=== PATIENT | female | born 1955 | race Caucasian/White ===

== ENCOUNTER 2016-07-19 15:13 | Inpatient (IN) | payer OTHER ==
[~2016-07-19] VITALS: Ht 170.2 cm; Wt 51.0 kg
[2016-07-19] MEDS ORDERED: CEFTRIAXONE SOD INJ 1 GM ADDVIAL IV STA (15:39)
[2016-07-19] MEDS ORDERED: VANCOMYCIN INJ 1,250 MG in SODIUM CHLORIDE 0.9% 250ML 250 ML IV STA (15:39)
[2016-07-19] MEDS ORDERED: KETOROLAC TROMETHAMINE 30 MG/ML VIAL IV STA (15:56)
[2016-07-19] MEDS ORDERED: SERT100T PO (15:59)
[2016-07-19] MEDS ORDERED: ALBUAER INH (15:59)
[2016-07-19 17:03] LABS: BASO % 0.5 %; BASO ABS # 0.04 K/uL (0-0.2); COMPLETE YES; EOS % 0.4 %; HEMATOCRIT 47.5 % (37-47); IG% 0.2 %; LYMPH % 18.3 %; MEAN CELL VOLUME 94.8 fL (80-100); MEAN CORPUSCULAR HEMOGLOBIN 33.7 pg (25-34); MEAN CORPUSCULAR HGB CONC 35.6 g/dl (32-36); MEAN PLATELET VOLUME 11.1 fL (7.4-10.4); MONO % 10.5 %; NEUT % 70.1 %; PLATELET COUNT 226 K/uL (130-400); RED BLOOD COUNT 5.01 M/uL (4.2-5.4); WHITE BLOOD COUNT 8.19 K/uL (4.8-10.8)
[2016-07-19 17:14] LABS: PARTIAL THROMBOPLASTIN RATIO 1.2; PROTHROMBIN TIME (PATIENT) 10.7 SECONDS (9.0-12.0)
[2016-07-19 17:20] LABS: CREATININE 0.76 mg/dl (0.60-1.20)
[2016-07-19 17:20] LABS: URINE APPEARANCE CLEAR (CLEAR); URINE BILIRUBIN NEG (NEG); URINE COLOR DK YELLOW; URINE EPITHELIAL CELL AUTO >30 /lpf (0-5); URINE NITRITE POS (NEG); URINE PH 5.5 (4.5-7.5); URINE SPECIFIC GRAVITY 1.024 (1.000-1.030); UROBILINOGEN NEG (NEG); ZZUR CULT IF INDIC CLEAN CATCH NO
[2016-07-19 17:21] LABS: BUN/CREATININE RATIO 16.5 (10-20); CALCIUM 9.7 mg/dl (8.5-10.1)
[2016-07-19 17:22] LABS: MANUAL MICROSCOPIC REQUIRED? NO; REVIEW REQ? NO
[2016-07-19 17:23] LABS: ALB/GLOB RATIO 0.7 (0.9-2)
[2016-07-19] MEDS ORDERED: SODIUM CHLORIDE 0.9% 1000ML 1,000 ML IV STA (18:29)
[2016-07-19] MEDS ORDERED: MoRPHine SULFATE 4 MG/ML 1 ML CARP\\VIAL IV STA ×2 (18:29→20:21)
[2016-07-19] MEDS ORDERED: ONDANSETRON INJ 2 MG/ML 2 ML VIAL IV STA (18:29)
--- NOTE | 2016-07-19 18:48 | DIAGNOSTIC IMAGING REPORT ---
CHEST ONE VIEW PORTABLE CLINICAL HISTORY: Right anterior chest erythema, nausea, febrile dyspnea COMPARISON STUDY: No previous studies for comparison. FINDINGS: The bones soft tissues and hemidiaphragms are normal. The cardiomediastinal silhouette is normal. The lungs are clear. The pulmonary vasculature is normal. IMPRESSION: Negative chest. Electronically signed by: Trery Meza M.D. 07/19/2016 6:47 PM Dictated Date/Time: 07/19/2016 6:46 PM
--- NOTE | 2016-07-19 18:57 | EMERGENCY ROOM VISIT NOTE ---
History First contact with patient: 15:31 Chief Complaint: INFECTION Stated Complaint: CELLULITIS, NAUSEA, FEVER Nursing Triage Summary: see triage note History of Present Illness The patient is a 61 year old female who presents to the Emergency Room via private vehicle with complaints of "cellulitis, nausea, fever". The patient states that 2 days ago, she woke up with pain over the right anterior chest superficially. She notes that the skin was very painful. She states that it felt warm to touch. It has been rapidly progressing to include erythema of which now has spread from the right anterior chest up towards the right neck. She notes pain into the right neck. She rates the discomfort as an 8/10. There is associated nausea. She has a history of C. difficile. She denies any history of MRSA, diabetes, immunocompromising condition, chest pain, shortness of breath, abdominal pain. Review of Systems A complete 10-point Review of Systems was discussed with the patient, with pertinent positives and negatives listed in the History of Present Illness. All remaining Review of Systems questions can be considered negative unless otherwise specified. Past Medical/Surgical History Medical Problems: (1) Cellulitis of chest wall Bronchitis, stomach problems, cholecystectomy, ankle surgery, hysterectomy, appendectomy, hernia surgery, C diff. Family History Diabetes, high blood pressure, cancer, gallbladder disease. Social History Smoking Status: Current Every Day Smoker Social History: Patient lives with her adult children, and grandchildren. She admits to tobacco use and alcohol use. Current/Historical Medications Scheduled Sertraline Hcl (Zoloft), 100 MG PO DAILY Scheduled PRN Albuterol Sulfate (Proventil Hfa), 2 PUFFS INH UD PRN for Cough Allergies Coded Allergies: Penicillins (Unverified Allergy, Severe, ANAPHYLAXIS, 07/19/16) has tolerated ceftrixone and cefoxitin during past admissions Clarithromycin (Unverified Adverse Reaction, Unknown, GI UPSET, 07/19/16) Sulfamethoxazole w/Trimethoprim (Unverified Adverse Reaction, Unknown, GI UPSET, 07/19/16) Uncoded Allergies: SUTURE PROLENE VICRYL ? (Allergy, Unknown, 03/20/02) Physical Exam Vital Signs Date Time Temp Pulse Resp B/P (MAP) Pulse Ox O2 Delivery O2 Flow Rate FiO2 07/19/16 22:28 71 148/78 07/19/16 19:54 75 18 150/84 07/19/16 17:18 88 18 141/87 07/19/16 16:30 100 Room Air 07/19/16 15:22 37.1 107 18 117/82 96 Room Air Physical Exam VITAL SIGNS - Vital signs and nursing notes were reviewed. Patient is afebrile , normotensive, tachycardic at a rate of 107 bpm, and is saturating well on room air 96%. GENERAL -61-year-old female appearing her stated age who is in no acute distress. Communicates well with provider and answers questions appropriately. SKIN - There is a large homogenous erythematous non-raised rash on the skin overlying the right anterior chest, right shoulder and right anterior/lateral neck. This is warm to tough and tender to palpation. HEAD - NC/AT. EYES - Sclera anicteric. Palpebral conjunctiva pink and moist with no injection noted. MOUTH/OROPHARYNX - Without perioral cyanosis. NECK - Neck with FROM. Supple to palpation. No lymphadenopathy noted. No nuchal rigidity. No meningismus. LUNGS - Chest wall symmetric without accessory muscle use, intercostals retractions, or central cyanosis. Normal vesicular breath sounds CTA B/L. No wheezes, rales, or rhonchi appreciated. CARDIAC - RRR with S1/S2. No murmur, rubs, or gallops appreciated. ABDOMEN - Abdominal contour without pulsations or visible masses. BS normoactive all four quadrants. No tenderness, palpable masses, hepatosplenomegaly, or ascites noted. Medical Decision & Procedures ER Provider Diagnostic Interpretation: CHEST ONE VIEW PORTABLE CLINICAL HISTORY: Right anterior chest erythema, nausea, febrile dyspnea COMPARISON STUDY: No previous studies for comparison. FINDINGS: The bones soft tissues and hemidiaphragms are normal. The cardiomediastinal silhouette is normal. The lungs are clear. The pulmonary vasculature is normal. IMPRESSION: Negative chest. Electronically signed by: Trery Meza M.D. 07/19/2016 6:47 PM Dictated Date/Time: 07/19/2016 6:[address] WITHOUT CONTRAST CT DOSE: 339.80 mGy.cm HISTORY: Pain. Infection. R Shoulder/neck cellulitis, consider nec fasc TECHNIQUE: Multiaxial CT images of the chest were performed without contrast. COMPARISON: None. FINDINGS: Lungs are considered generally clear. Minimal left lower lobe posterior atelectatic change. No significant mediastinal or hilar adenopathy. Slight degree of infiltrative changes subcutaneous fat to lesser extent right femoral musculature over the right superior chest wall anteriorly extending into the anterior right shoulder and to a minimal degree lower right cervical neck region. No evidence for drainable abscess or collection. No abnormal soft tissue air. IMPRESSION: 1. Mild generalized cellulitis of the right anterior chest wall extending to a minimal extent to the lower right cervical region. 2. No evidence for abscess or collection. 3. Examination of chest is otherwise negative. 4. The study is specifically negative for soft tissue air Electronically signed by: Terry Meza M.D. 07/19/2016 8:55 PM Dictated Date/Time: 07/19/2016 8:49 PM Laboratory Results 07/19/16 16:40 Red Blood Count 5.01, Mean Corpuscular Volume 94.8, Mean Corpuscular Hemoglobin 33.7, Mean Corpuscular Hemoglobin Concent 35.6, Mean Platelet Volume 11.1, Neutrophils (%) (Auto) 70.1, Lymphocytes (%) (Auto) 18.3, Monocytes (%) (Auto) 10.5, Eosinophils (%) (Auto) 0.4, Basophils (%) (Auto) 0.5, Neutrophils # (Auto ) 5.74, Lymphocytes # (Auto) 1.50, Monocytes # (Auto) 0.86, Eosinophils # (Auto ) 0.03, Basophils # (Auto) 0.04 07/19/16 16:40 Test 07/19/16 16:40 07/19/16 17:00 07/19/16 17:20 White Blood Count 8.19 K/uL (4.8-10.8) Red Blood Count 5.01 M/uL (4.2-5.4) Hemoglobin 16.9 g/dL (12.0-16.0) Hematocrit 47.5 % (37-47) Mean Corpuscular Volume 94.8 fL (80-100) Mean Corpuscular Hemoglobin 33.7 pg (25-34) Mean Corpuscular Hemoglobin Concent 35.6 g/dl (32-36) Platelet Count 226 K/uL (130-400) Mean Platelet Volume 11.1 fL (7.4-10.4) Neutrophils (%) (Auto) 70.1 % Lymphocytes (%) (Auto) 18.3 % Monocytes (%) (Auto) 10.5 % Eosinophils (%) (Auto) 0.4 % Basophils (%) (Auto) 0.5 % Neutrophils # (Auto) 5.74 K/uL (1.4-6.5) Lymphocytes # (Auto) 1.50 K/uL (1.2-3.4) Monocytes # (Auto) 0.86 K/uL (0.11-0.59) Eosinophils # (Auto) 0.03 K/uL (0-0.5) Basophils # (Auto) 0.04 K/uL (0-0.2) RDW Standard Deviation 44.7 fL (36.4-46.3) RDW Coefficient of Variation 13.0 % (11.5-14.5) Immature Granulocyte % (Auto) 0.2 % Immature Granulocyte # (Auto) 0.02 K/uL (0.00-0.02) Prothrombin Time 10.7 SECONDS (9.0-12.0) Prothromb Time International Ratio 1.0 (0.9-1.1) Activated Partial Thromboplast Time 30.8 SECONDS (21.0-31.0) Partial Thromboplastin Ratio 1.2 Anion Gap 7.0 mmol/L (3-11) Est Creatinine Clear Calc Drug Dose 63.7 ml/min Estimated GFR () 99.5 Estimated GFR (Non- 85.9 BUN/Creatinine Ratio 16.5 (10-20) Calcium Level 9.7 mg/dl (8.5-10.1) Total Bilirubin 0.2 mg/dl (0.2-1) Aspartate Amino Transf (AST/SGOT) 12 U/L (15-37) Alanine Aminotransferase (ALT/SGPT) 18 U/L (12-78) Alkaline Phosphatase 97 U/L (45-117) Total Protein 9.0 gm/dl (6.4-8.2) Albumin 3.8 gm/dl (3.4-5.0) Globulin 5.2 gm/dl (2.5-4.0) Albumin/Globulin Ratio 0.7 (0.9-2) Lyme Disease IgG Antibody NEG (NEG) Urine Color DK YELLOW Urine Appearance CLEAR (CLEAR) Urine pH 5.5 (4.5-7.5) Urine Specific [place] 1.024 (1.000-1.030) Urine Protein NEG (NEG) Urine Glucose (UA) NEG (NEG) Urine Ketones NEG (NEG) Urine Occult Blood 1+ (NEG) Urine Nitrite POS (NEG) Urine Bilirubin NEG (NEG) Urine Urobilinogen NEG (NEG) Urine Leukocyte Esterase MODERATE (NEG) Urine WBC (Auto) 1-5 /hpf (0-5) Urine RBC (Auto) 10-30 /hpf (0-4) Urine Hyaline Casts (Auto) 5-10 /lpf (0-5) Urine Epithelial Cells (Auto) >30 /lpf (0-5) Urine Bacteria (Auto) NEG (NEG) Bedside Lactic Acid Venous 0.76 mmol/L (0.90-1.70) Medications Administered Medications (Trade) Dose Ordered Sig/Jose Angel Route Start Time Stop Time Status Last Admin Dose Admin Ceftriaxone Sodium (Rocephin Inj) 1 gm NOW STAT IV 07/19/16 15:39 07/19/16 15:45 DC 07/19/16 17:15 1 GM Vancomycin HCl 1250 mg/Sodium Chloride 275 ml @ 125 mls/hr NOW STAT IV 07/19/16 15:39 07/19/16 17:50 DC 07/19/16 17:15 125 MLS/HR Ketorolac Tromethamine (Toradol Inj) 30 mg NOW STAT IV 07/19/16 15:56 07/19/16 15:57 DC 07/19/16 17:15 30 MG Morphine Sulfate (MoRPHine SULFATE INJ) 4 mg NOW STAT IV 07/19/16 18:29 07/19/16 18:31 DC 07/19/16 18:51 4 MG Ondansetron HCl (Zofran Inj) 4 mg NOW STAT IV 07/19/16 18:29 07/19/16 18:31 DC 07/19/16 18:51 4 MG Sodium Chloride 1,000 ml @ 999 mls/hr Q1H1M STAT IV 07/19/16 18:29 07/19/16 19:29 DC 07/19/16 18:52 999 MLS/HR Morphine Sulfate (MoRPHine SULFATE INJ) 4 mg NOW STAT IV 07/19/16 20:21 07/19/16 20:22 DC 07/19/16 20:32 4 MG Medical Decision Patient was seen and evaluated as above. After obtaining a thorough history and physical examination there was concern for a large amount of cellulitis on the patient's right anterior chest. Patient's vital signs are stable upon presentation, she is noted be tachycardic. Blood cultures were obtained as well as a lactic acid. Lactic acid is negative. Blood cultures are pending. Vancomycin and Rocephin were ordered. It was identified that Rocephin was provided in the past without difficulty. They come ice and was provided a dose suggested by in-house pharmacy. CBC reveals no leukocytosis. No anemia noted. Coagulation studies unremarkable. CMP reveals normal electrolytes. Point care lactic negative. AST low at 12. Total protein high at 9. Urine reveals 1 + occult blood, positive nitrites, moderate leukocyte esterase, 10-30 red blood cells, 5-10 hyaline casts, and greater than 30 epithelial cells. The Rocephin should treat any potential underlying UTI. Although the patient has a stable vital signs, she is in a great deal of pain. She was given Toradol for her pain and reevaluated and was still expressing pain therefore was given morphine and Zofran. At this time I do believe that inpatient admission is warranted secondary to the extent of the cellulitis. I did discuss the case with my attending, and the decision was made to obtain a CT scan of the chest to rule out any underlying subcutaneous air. This was negative for such process. This was concerning for cellulitis. I did discuss the case with the inpatient hospitalist team, please refer to further documentation regarding the patient's stay. In the evaluation treatment this patient following differential diagnoses were entertained: Cellulitis, necrotizing fasciitis, Lyme disease, sepsis, skin eruption, among others. Impression Primary Impression: Cellulitis of chest wall Departure Information Dispostion Admitted as an inpatient Condition FAIR Referrals Julius Padilla Jr,D.O. (PCP) Patient Instructions My [facility]
--- NOTE | 2016-07-19 20:09 | History and Physical ---
History & Physical Date & Time of Service: Jul 19, 2016 at 19:52 Chief Complaint: Cellulitis, Nausea, Fever Primary Care Physician: Julius Padilla Jr,D.O. History of Present Illness Source: patient 61 y/o F denies any active medical issues. Developed redness, warmth and moderate to sever pain over R chest, clavicle and R neck. She may smith a fever but this was not confirmed on arrival to the ER. Due to the location of her presumed cellulitis and rapid spread, we will admit for IV antibiotics and monitoring. She does not recall any skin compromise or insect bites prior to developing the rash. Past Medical/Surgical History Denies active medical issues - long-term smoker Surgical: SPO Hysterectomy Sigmoid resection Ventral hernia repair Family History Father due to CHF - Mother due to complications of a CVA Social History Smoking Status: Current Every Day Smoker Multi-Drug Resistant Organisms History of MDRO: No Allergies Coded Allergies: Penicillins (Unverified Allergy, Severe, ANAPHYLAXIS, 07/19/16) has tolerated ceftrixone and cefoxitin during past admissions Clarithromycin (Unverified Adverse Reaction, Unknown, GI UPSET, 07/19/16) Sulfamethoxazole w/Trimethoprim (Unverified Adverse Reaction, Unknown, GI UPSET, 07/19/16) Uncoded Allergies: SUTURE PROLENE VICRYL ? (Allergy, Unknown, 03/20/02) Home Medications Scheduled Sertraline Hcl (Zoloft), 100 MG PO DAILY Scheduled PRN Albuterol Sulfate (Proventil Hfa), 2 PUFFS INH UD PRN for Cough Review of Systems Constitutional: + fever, + chills, No sweats Eyes: No worsening of vision, No eye pain ENT: No hearing loss, No unusual epistaxis, No nasal symptoms Respiratory: No cough, No sputum, No wheezing Cardiovascular: No chest pain, No orthopnea, No PND Abdomen: No pain, No nausea, No vomiting Musculoskeletal: No joint pain, No muscle pain Genitourinary - Female: No dysuria, No urinary frequency, No urinary urgency Neurologic: No memory loss, No paralysis, No weakness Psychiatric: No depression symptoms Endocrine: No fatigue Hematologic / Lymphatic: No abnormal bleeding/bruising Integumentary: + rash (Cellultis over R chest,neck as above) Physical Exam Vital Signs Date Time Temp Pulse Resp B/P (MAP) Pulse Ox O2 Delivery O2 Flow Rate FiO2 07/19/16 17:18 88 18 141/87 07/19/16 16:30 100 Room Air 07/19/16 15:22 37.1 107 18 117/82 96 Room Air General Appearance: WD/WN, no apparent distress Head: normocephalic Eyes: normal inspection, EOMI ENT: normal ENT inspection, pharynx normal Neck: supple, no JVD Respiratory/Chest: chest non-tender, no accessory muscle use Cardiovascular: regular rate, rhythm, normal peripheral pulses Abdomen/GI: normal bowel sounds, non tender, soft Back: normal inspection, no CVA tenderness, no muscle spasm, normal range of motion Extremities/Musculoskelatal: normal inspection, normal range of motion 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, no motor/sensory deficits, alert, normal mood/affect, normal reflexes, oriented x 3 Skin: + pertinent finding (Cellultis over R chest, clavicle, neck - very tende to touch - no crepitus) Diagnostics Laboratory Results Results Past 24 Hours Test 07/19/16 16:40 07/19/16 17:00 07/19/16 17:20 Range/Units White Blood Count 8.19 4.8-10.8 K/uL Red Blood Count 5.01 4.2-5.4 M/uL Hemoglobin 16.9 12.0-16.0 g/dL Hematocrit 47.5 37-47 % Mean Corpuscular Volume 94.8 80-100 fL Mean Corpuscular Hemoglobin 33.7 25-34 pg Mean Corpuscular Hemoglobin Concent 35.6 32-36 g/dl Platelet Count 226 130-400 K/uL Mean Platelet Volume 11.1 7.4-10.4 fL Neutrophils (%) (Auto) 70.1 % Lymphocytes (%) (Auto) 18.3 % Monocytes (%) (Auto) 10.5 % Eosinophils (%) (Auto) 0.4 % Basophils (%) (Auto) 0.5 % Neutrophils # (Auto) 5.74 1.4-6.5 K/uL Lymphocytes # (Auto) 1.50 1.2-3.4 K/uL Monocytes # (Auto) 0.86 0.11-0.59 K/uL Eosinophils # (Auto) 0.03 0-0.5 K/uL Basophils # (Auto) 0.04 0-0.2 K/uL RDW Standard Deviation 44.7 36.4-46.3 fL RDW Coefficient of Variation 13.0 11.5-14.5 % Immature Granulocyte % (Auto) 0.2 % Immature Granulocyte # (Auto) 0.02 0.00-0.02 K/uL Prothrombin Time 10.7 9.0-12.0 SECONDS Prothromb Time International Ratio 1.0 0.9-1.1 Activated Partial Thromboplast Time 30.8 21.0-31.0 SECONDS Partial Thromboplastin Ratio 1.2 Sodium Level 139 136-145 mmol/L Potassium Level 4.0 3.5-5.1 mmol/L Chloride Level 103 98-107 mmol/L Carbon Dioxide Level 29 21-32 mmol/L Anion Gap 7.0 3-11 mmol/L Blood Urea Nitrogen 13 7-18 mg/dl Creatinine 0.76 0.60-1.20 mg/dl Est Creatinine Clear Calc Drug Dose 63.7 ml/min Estimated GFR () 99.5 Estimated GFR (Non- 85.9 BUN/Creatinine Ratio 16.5 10-20 Random Glucose 111 70-99 mg/dl Calcium Level 9.7 8.5-10.1 mg/dl Total Bilirubin 0.2 0.2-1 mg/dl Aspartate Amino Transf (AST/SGOT) 12 15-37 U/L Alanine Aminotransferase (ALT/SGPT) 18 12-78 U/L Alkaline Phosphatase 97 45-117 U/L Total Protein 9.0 6.4-8.2 gm/dl Albumin 3.8 3.4-5.0 gm/dl Globulin 5.2 2.5-4.0 gm/dl Albumin/Globulin Ratio 0.7 0.9-2 Urine Color DK YELLOW Urine Appearance CLEAR CLEAR Urine pH 5.5 4.5-7.5 Urine Specific [place] 1.024 1.000-1.030 Urine Protein NEG NEG Urine Glucose (UA) NEG NEG Urine Ketones NEG NEG Urine Occult Blood 1+ NEG Urine Nitrite POS NEG Urine Bilirubin NEG NEG Urine Urobilinogen NEG NEG Urine Leukocyte Esterase MODERATE NEG Urine WBC (Auto) 1-5 0-5 /hpf Urine RBC (Auto) 10-30 0-4 /hpf Urine Hyaline Casts (Auto) 5-10 0-5 /lpf Urine Epithelial Cells (Auto) >30 0-5 /lpf Urine Bacteria (Auto) NEG NEG Bedside Lactic Acid Venous 0.76 0.90-1.70 mmol/L Microbiology Results 07/19/16 Blood Culture, Received Pending 07/19/16 Blood Culture, Received Pending Impression Assessment and Plan 61 y/o F denies any active medical issues. Developed redness, warmth and moderate to sever pain over R chest, clavicle and R neck. She may smith a fever but this was not confirmed on arrival to the ER. Due to the location of her presumed cellulitis and rapid spread, we will admit for IV antibiotics and monitoring. She does not recall any skin compromise or insect bites prior to developing the rash. Pt will be treated with Ceftriaxone and Vanc As the rash is spreading rapidly we have ordered a CT chest/neck to r/o subq air /fasciitis She will receive narcotics for pain control and aggressive IVF - the affected area has been demarcated. Advise on smoking cessation prior to DC Full code - Heparin prophylaxis following CT Total time for this admit including review of labs, meds, imaging - discussion with pt and ER attending - 35 min Level of Care Med/Surg Resuscitation Status FULL RESUSCITATION VTE Prophylaxis Given or contraindicated: Unfractionated heparin SQ
--- NOTE | 2016-07-19 20:56 | DIAGNOSTIC IMAGING REPORT ---
CHEST CT WITHOUT CONTRAST CT DOSE: 339.80 mGy.cm HISTORY: Pain. Infection. R Shoulder/neck cellulitis, consider nec fasc TECHNIQUE: Multiaxial CT images of the chest were performed without contrast. COMPARISON: None. FINDINGS: Lungs are considered generally clear. Minimal left lower lobe posterior atelectatic change. No significant mediastinal or hilar adenopathy. Slight degree of infiltrative changes subcutaneous fat to lesser extent right femoral musculature over the right superior chest wall anteriorly extending into the anterior right shoulder and to a minimal degree lower right cervical neck region. No evidence for drainable abscess or collection. No abnormal soft tissue air. IMPRESSION: 1. Mild generalized cellulitis of the right anterior chest wall extending to a minimal extent to the lower right cervical region. 2. No evidence for abscess or collection. 3. Examination of chest is otherwise negative. 4. The study is specifically negative for soft tissue air Electronically signed by: Terry Meza M.D. 07/19/2016 8:55 PM Dictated Date/Time: 07/19/2016 8:49 PM
[2016-07-19] MEDS ORDERED: VANCOMYCIN INJ 1,000 MG in SODIUM CHLORIDE 0.9% 250ML 250 ML IV STA (22:49)
[2016-07-19] MEDS ORDERED: ALBUTEROL HFA 8 GM INHALER INH PRN (23:00)
[2016-07-19] MEDS ORDERED: ACETAMINOPHEN IV 100 ML IV PRN (23:00)
[2016-07-19] MEDS ORDERED: ZOLPIDEM TARTRATE 5 MG TAB PO PRN (23:00)
[2016-07-19] MEDS ORDERED: ACETAMINOPHEN 325 MG TAB PO PRN (23:00)
[2016-07-19] MEDS ORDERED: TRAMADOL HCL 50 MG TAB PO PRN (23:00)
[2016-07-19] MEDS ORDERED: VANCOMYCIN HCL 150 MG/3 ML SOLN PO STA (23:28)
[2016-07-19] MEDS ORDERED: LACTOBACILLUS ACIDOPHILUS (FLORANEX) TAB PO STA (23:29)
[2016-07-19 23:40] LABS: LYME DISEASE AB IGG NEG (NEG)
[2016-07-19] MEDS ORDERED: VANCOMYCIN CONSULT ACTIVE PRN (23:45)
[2016-07-19] MEDS: ONDANSETRON INJ 2 MG/ML 2 ML VIAL IV PRN (23:50)
[2016-07-19] MEDS: KETOROLAC TROMETHAMINE 30 MG/ML VIAL IV PRN (23:51)
[2016-07-20 00:04] LABS: LYME DISEASE AB IGM EQUIVOCAL (NEG)
[2016-07-20 00:15] VITALS: BP 157/84; PULSE 71; TEMP 37.4; O2SAT 97; Ht 170.2 cm; Wt 51.0 kg
[2016-07-20] MEDS: MoRPHine SULFATE 2 MG/ML CARP IV PRN ×3 (00:32→16:06)
[2016-07-20] MEDS: MoRPHine SULFATE 4 MG/ML 1 ML CARP\\VIAL IV PRN ×3 (03:51→21:09)
[2016-07-20] MEDS ORDERED: VANCOMYCIN INJ 600 MG in SODIUM CHLORIDE 0.9% 250ML 250 ML IV SCH (05:00)
[2016-07-20] MEDS: TRAMADOL HCL 50 MG TAB PO PRN (05:07)
[2016-07-20] MEDS: NSS + 20MEQ KCL 1000ML 1,000 ML IV SCH ×3 (05:10→23:00)
[2016-07-20 07:31] LABS: BASO % 0.3 %; BASO ABS # 0.02 K/uL (0-0.2); COMPLETE YES; EOS % 3.2 %; HEMATOCRIT 41.5 % (37-47); IG% 0.1 %; LYMPH % 26.1 %; LYMPH ABS # 1.94 K/uL (1.2-3.4); MEAN CELL VOLUME 95.4 fL (80-100); MEAN CORPUSCULAR HEMOGLOBIN 31.5 pg (25-34); MEAN PLATELET VOLUME 10.7 fL (7.4-10.4); MONO % 11.2 %; NEUT % 59.1 %; PLATELET COUNT 182 K/uL (130-400); RED BLOOD COUNT 4.35 M/uL (4.2-5.4); WHITE BLOOD COUNT 7.43 K/uL (4.8-10.8)
[2016-07-20 07:50] LABS: BUN/CREATININE RATIO 19.9 (10-20); CREATININE 0.96 mg/dl (0.60-1.20); MAGNESIUM 2.1 mg/dl (1.8-2.4); POTASSIUM 4.3 mmol/L (3.5-5.1)
[2016-07-20 07:59] LABS: CALCIUM 8.2 mg/dl (8.5-10.1)
[2016-07-20] MEDS ORDERED: PNEUMOCOCCAL POLYSACCHARIDES 25 MCG/0.5 ML VIAL/SYR IM. ONE (08:00)
[2016-07-20] MEDS ORDERED: PNEUMOCOCCAL ADMINISTRATION CHARGE ONE (08:00)
[2016-07-20] MEDS: SERTRALINE HCL 100 MG TAB PO SCH (08:11)
[2016-07-20] MEDS: RASPBERRY SYRUP 5 ML UDP PO SCH ×4 (08:12→21:09)
[2016-07-20] MEDS: LACTOBACILLUS ACIDOPHILUS (FLORANEX) TAB PO SCH ×3 (08:12→16:10)
[2016-07-20 08:14] VITALS: BP 103/57; PULSE 62; TEMP 36.6; O2SAT 97
[2016-07-20] MEDS: VANCOMYCIN HCL 150 MG/3 ML SOLN PO SCH ×4 (08:15→21:08)
[2016-07-20] MEDS: ONDANSETRON INJ 2 MG/ML 2 ML VIAL IV PRN ×2 (11:14→21:07)
--- NOTE | 2016-07-20 11:18 | Pharmacy Progress Note ---
Pharmacy Antibiotic Consult Date of Service: Jul 20, 2016. Pharmacy Dosing Scope Pharmacy is consulted to initiate vancomycin IV dosing therapy, order appropriate labs and adjust drug dose/frequency. Subjective The patient is a 61 year old female admitted on Jul 19, 2016 at 22:47 with chest wall cellulitis. Objective Height (Feet): 5 Height (Inches): 7.00 Weight (Kilograms): 51.000 Lab Results (24hrs): Test 07/19/16 16:40 07/19/16 17:00 07/19/16 17:20 07/20/16 07:00 White Blood Count 8.19 K/uL (4.8-10.8) 7.43 K/uL (4.8-10.8) Red Blood Count 5.01 M/uL (4.2-5.4) 4.35 M/uL (4.2-5.4) Hemoglobin 16.9 g/dL (12.0-16.0) 13.7 g/dL (12.0-16.0) Hematocrit 47.5 % (37-47) 41.5 % (37-47) Mean Corpuscular Volume 94.8 fL (80-100) 95.4 fL (80-100) Mean Corpuscular Hemoglobin 33.7 pg (25-34) 31.5 pg (25-34) Mean Corpuscular Hemoglobin Concent 35.6 g/dl (32-36) 33.0 g/dl (32-36) Platelet Count 226 K/uL (130-400) 182 K/uL (130-400) Mean Platelet Volume 11.1 fL (7.4-10.4) 10.7 fL (7.4-10.4) Neutrophils (%) (Auto) 70.1 % 59.1 % Lymphocytes (%) (Auto) 18.3 % 26.1 % Monocytes (%) (Auto) 10.5 % 11.2 % Eosinophils (%) (Auto) 0.4 % 3.2 % Basophils (%) (Auto) 0.5 % 0.3 % Neutrophils # (Auto) 5.74 K/uL (1.4-6.5) 4.39 K/uL (1.4-6.5) Lymphocytes # (Auto) 1.50 K/uL (1.2-3.4) 1.94 K/uL (1.2-3.4) Monocytes # (Auto) 0.86 K/uL (0.11-0.59) 0.83 K/uL (0.11-0.59) Eosinophils # (Auto) 0.03 K/uL (0-0.5) 0.24 K/uL (0-0.5) Basophils # (Auto) 0.04 K/uL (0-0.2) 0.02 K/uL (0-0.2) RDW Standard Deviation 44.7 fL (36.4-46.3) 44.8 fL (36.4-46.3) RDW Coefficient of Variation 13.0 % (11.5-14.5) 12.8 % (11.5-14.5) Immature Granulocyte % (Auto) 0.2 % 0.1 % Immature Granulocyte # (Auto) 0.02 K/uL (0.00-0.02) 0.01 K/uL (0.00-0.02) Prothrombin Time 10.7 SECONDS (9.0-12.0) Prothromb Time International Ratio 1.0 (0.9-1.1) Activated Partial Thromboplast Time 30.8 SECONDS (21.0-31.0) Partial Thromboplastin Ratio 1.2 Sodium Level 139 mmol/L (136-145) 140 mmol/L (136-145) Potassium Level 4.0 mmol/L (3.5-5.1) 4.3 mmol/L (3.5-5.1) Chloride Level 103 mmol/L (98-107) 109 mmol/L (98-107) Carbon Dioxide Level 29 mmol/L (21-32) 25 mmol/L (21-32) Anion Gap 7.0 mmol/L (3-11) 6.0 mmol/L (3-11) Blood Urea Nitrogen 13 mg/dl (7-18) 19 mg/dl (7-18) Creatinine 0.76 mg/dl (0.60-1.20) 0.96 mg/dl (0.60-1.20) Est Creatinine Clear Calc Drug Dose 63.7 ml/min 50.8 ml/min Estimated GFR () 99.5 75.0 Estimated GFR (Non- 85.9 64.7 BUN/Creatinine Ratio 16.5 (10-20) 19.9 (10-20) Random Glucose 111 mg/dl (70-99) 91 mg/dl (70-99) Calcium Level 9.7 mg/dl (8.5-10.1) 8.2 mg/dl (8.5-10.1) Total Bilirubin 0.2 mg/dl (0.2-1) Aspartate Amino Transf (AST/SGOT) 12 U/L (15-37) Alanine Aminotransferase (ALT/SGPT) 18 U/L (12-78) Alkaline Phosphatase 97 U/L (45-117) Total Protein 9.0 gm/dl (6.4-8.2) Albumin 3.8 gm/dl (3.4-5.0) Globulin 5.2 gm/dl (2.5-4.0) Albumin/Globulin Ratio 0.7 (0.9-2) Lyme Disease IgG Antibody NEG (NEG) Lyme Disease IgM Antibody EQUIVOCAL (NEG) Urine Color DK YELLOW Urine Appearance CLEAR (CLEAR) Urine pH 5.5 (4.5-7.5) Urine Specific [place] 1.024 (1.000-1.030) Urine Protein NEG (NEG) Urine Glucose (UA) NEG (NEG) Urine Ketones NEG (NEG) Urine Occult Blood 1+ (NEG) Urine Nitrite POS (NEG) Urine Bilirubin NEG (NEG) Urine Urobilinogen NEG (NEG) Urine Leukocyte Esterase MODERATE (NEG) Urine WBC (Auto) 1-5 /hpf (0-5) Urine RBC (Auto) 10-30 /hpf (0-4) Urine Hyaline Casts (Auto) 5-10 /lpf (0-5) Urine Epithelial Cells (Auto) >30 /lpf (0-5) Urine Bacteria (Auto) NEG (NEG) Bedside Lactic Acid Venous 0.76 mmol/L (0.90-1.70) Magnesium Level 2.1 mg/dl (1.8-2.4) Micro Results: 07/19 blood x2 pending Recent Pertinent Medications Item Value Date Time Vancomycin HCl 265 ml @ 125 mls/hr 07/20/16 1800 750 mg/Sodium Q16H/IV Chloride Ceftriaxone 50 ml @ 100 mls/hr 07/20/16 1700 Sodium 1 gm/ Q24H/IV Dextrose Vancomycin HCl 262 ml @ 125 mls/hr 07/20/16 0500 600 mg/Sodium Q12H/IV 07/20/16 0500 Chloride Vancomycin HCl 150 mg 07/19/16 2328 (Vancomycin Oral NOW STAT/PO 07/19/16 2340 Soln) Ceftriaxone Sodium 1 gm 07/19/16 1539 (Rocephin Inj) NOW STAT/IV 07/19/16 1715 Vancomycin HCl 275 ml @ 125 mls/hr 07/19/16 1539 1250 mg/Sodium NOW STAT/IV 07/19/16 1715 Chloride Vancomycin HCl 150 mg 07/20/16 0800 (Vancomycin Oral QID/PO 07/20/16 0815 Soln) Assessment & Plan Loading dose: vancomycin 1250 mg IV X 1 dose (~25 mg/kg), then: vancomycin 600 mg IV every 12 hours. However SCr is increased 07/20, so will extend dosing interval and change to 750 mg q16h. Goal peak level estimate: between 25-40 mcg/mL. Goal trough level estimate: between 12-17 mcg/mL. Trough has been ordered for: 07/22/16 before 0200 dose. Pharmacy will continue to follow and will adjust dose/frequency as necessary. Thank you
[2016-07-20 15:12] VITALS: BP 101/64; PULSE 55; TEMP 36.7; O2SAT 95
--- NOTE | 2016-07-20 15:29 | Progress Note ---
Subjective Date of Service: Jul 20, 2016. Subjective Pt evaluation today including: conversation w/ patient, physical exam, chart review, lab review, review of studies, review of inpatient medication list Pt resting in bed comfortably States pain improved No fevers or chills No acute events overnight Review of Systems Constitutional: No fever, No chills, No sweats, No weight loss Eyes: No worsening of vision, No eye pain, No redness ENT: No hearing loss, No unusual epistaxis, No nasal symptoms, No sore throat Respiratory: No cough, No sputum, No wheezing, No shortness of breath Cardiac: No chest pain, No orthopnea, No PND, No edema Abdomen: No pain, No nausea, No vomiting, No diarrhea, No constipation Musculoskeletal: No joint pain, No muscle pain, No swelling Female : No dysuria, No urinary frequency, No hematuria, No incontinence Neurologic: No memory loss, No weakness, No numbness/tingling Psychiatric: No depression symptoms, No anhedonism, No anxiety, No insomnia Endo: No fatigue, No excessive thirst Skin: + new/changing skin lesions (redness on right side of neck and chest wall ), No rash, No itch Objective Vital Signs Date Time Temp Pulse Resp B/P (MAP) Pulse Ox O2 Delivery O2 Flow Rate FiO2 07/20/16 15:12 36.7 55 18 101/64 (76) 95 Room Air 07/20/16 08:14 36.6 62 20 103/57 (72) 97 Room Air 07/20/16 00:15 37.4 71 18 157/84 97 Room Air 07/19/16 23:53 61 20 150/74 96 Room Air 07/19/16 22:28 71 148/78 07/19/16 19:54 75 18 150/84 07/19/16 17:18 88 18 141/87 07/19/16 16:30 100 Room Air 07/19/16 15:22 37.1 107 18 117/82 96 Room Air Physical Exam General Appearance: WD/WN, + mild distress Eyes: normal inspection, PERRL, EOMI, sclerae normal ENT: normal ENT inspection, hearing grossly normal, TMs normal, pharynx normal Neck: supple, no adenopathy, thyroid normal, no JVD Respiratory/Chest: chest non-tender, lungs clear, normal breath sounds, no respiratory distress Cardiovascular: regular rate, rhythm, no edema, no gallop, no JVD Abdomen: normal bowel sounds, non tender, soft, no organomegaly Extremities: normal range of motion, non-tender, normal inspection, no pedal edema Neurologic/Psychiatric: no motor/sensory deficits, alert, normal mood/affect, oriented x 3 Skin: normal color, warm/dry, no rash, + pertinent finding (right neck/chest wall redness) Laboratory Results Last 24 Hours Test 07/19/16 16:40 07/19/16 17:00 07/19/16 17:20 07/20/16 07:00 White Blood Count 8.19 K/uL 7.43 K/uL Red Blood Count 5.01 M/uL 4.35 M/uL Hemoglobin 16.9 g/dL 13.7 g/dL Hematocrit 47.5 % 41.5 % Mean Corpuscular Volume 94.8 fL 95.4 fL Mean Corpuscular Hemoglobin 33.7 pg 31.5 pg Mean Corpuscular Hemoglobin Concent 35.6 g/dl 33.0 g/dl Platelet Count 226 K/uL 182 K/uL Mean Platelet Volume 11.1 fL 10.7 fL Neutrophils (%) (Auto) 70.1 % 59.1 % Lymphocytes (%) (Auto) 18.3 % 26.1 % Monocytes (%) (Auto) 10.5 % 11.2 % Eosinophils (%) (Auto) 0.4 % 3.2 % Basophils (%) (Auto) 0.5 % 0.3 % Neutrophils # (Auto) 5.74 K/uL 4.39 K/uL Lymphocytes # (Auto) 1.50 K/uL 1.94 K/uL Monocytes # (Auto) 0.86 K/uL 0.83 K/uL Eosinophils # (Auto) 0.03 K/uL 0.24 K/uL Basophils # (Auto) 0.04 K/uL 0.02 K/uL RDW Standard Deviation 44.7 fL 44.8 fL RDW Coefficient of Variation 13.0 % 12.8 % Immature Granulocyte % (Auto) 0.2 % 0.1 % Immature Granulocyte # (Auto) 0.02 K/uL 0.01 K/uL Prothrombin Time 10.7 SECONDS Prothromb Time International Ratio 1.0 Activated Partial Thromboplast Time 30.8 SECONDS Partial Thromboplastin Ratio 1.2 Sodium Level 139 mmol/L 140 mmol/L Potassium Level 4.0 mmol/L 4.3 mmol/L Chloride Level 103 mmol/L 109 mmol/L Carbon Dioxide Level 29 mmol/L 25 mmol/L Anion Gap 7.0 mmol/L 6.0 mmol/L Blood Urea Nitrogen 13 mg/dl 19 mg/dl Creatinine 0.76 mg/dl 0.96 mg/dl Est Creatinine Clear Calc Drug Dose 63.7 ml/min 50.8 ml/min Estimated GFR () 99.5 75.0 Estimated GFR (Non- 85.9 64.7 BUN/Creatinine Ratio 16.5 19.9 Random Glucose 111 mg/dl 91 mg/dl Calcium Level 9.7 mg/dl 8.2 mg/dl Total Bilirubin 0.2 mg/dl Aspartate Amino Transf (AST/SGOT) 12 U/L Alanine Aminotransferase (ALT/SGPT) 18 U/L Alkaline Phosphatase 97 U/L Total Protein 9.0 gm/dl Albumin 3.8 gm/dl Globulin 5.2 gm/dl Albumin/Globulin Ratio 0.7 Lyme Disease IgG Antibody NEG Lyme Disease IgM Antibody EQUIVOCAL Urine Color DK YELLOW Urine Appearance CLEAR Urine pH 5.5 Urine Specific Julian 1.024 Urine Protein NEG Urine Glucose (UA) NEG Urine Ketones NEG Urine Occult Blood 1+ Urine Nitrite POS Urine Bilirubin NEG Urine Urobilinogen NEG Urine Leukocyte Esterase MODERATE Urine WBC (Auto) 1-5 /hpf Urine RBC (Auto) 10-30 /hpf Urine Hyaline Casts (Auto) 5-10 /lpf Urine Epithelial Cells (Auto) >30 /lpf Urine Bacteria (Auto) NEG Bedside Lactic Acid Venous 0.76 mmol/L Magnesium Level 2.1 mg/dl Assessment and Plan 61 y/o presented to ED with redness, warmth and severe pain. Admited to medical floor No fevers or chills Redness improving and receeding from demarcated lines Cont IV antibx of rocephin and vanc day # 2 Cont narcotics for pain control and aggressive IVF - the affected area has been demarcated. Advise on smoking cessation prior to DC Full code - Heparin prophylaxis following CT
[2016-07-20 16:00] VITALS: BP 118/74; PULSE 84
[2016-07-20] MEDS: CEFTRIAXONE SOD INJ 1 GM in DEXTROSE 5% ADD-VANTAGE 50ML 50 ML IV SCH (16:10)
[2016-07-20] MEDS: VANCOMYCIN INJ 750 MG in SODIUM CHLORIDE 0.9% 250ML 250 ML IV SCH (18:30)
[2016-07-21] MEDS: TRAMADOL HCL 50 MG TAB PO PRN ×3 (00:05→22:51)
[2016-07-21 00:08] VITALS: BP 108/59; PULSE 69; TEMP 36.9; O2SAT 95
[2016-07-21] MEDS ORDERED: VANCOMYCIN TROUGH SCH (04:30)
[2016-07-21] MEDS: MoRPHine SULFATE 4 MG/ML 1 ML CARP\\VIAL IV PRN ×3 (05:44→22:02)
[2016-07-21 07:40] LABS: BASO % 0.6 %; BASO ABS # 0.04 K/uL (0-0.2); COMPLETE YES; EOS % 7.9 %; HEMATOCRIT 44.2 % (37-47); IG% 0.2 %; LYMPH % 29.2 %; LYMPH ABS # 1.81 K/uL (1.2-3.4); MEAN CELL VOLUME 95.3 fL (80-100); MEAN CORPUSCULAR HGB CONC 32.6 g/dl (32-36); MEAN PLATELET VOLUME 10.7 fL (7.4-10.4); MONO % 12.7 %; NEUT % 49.4 %; PLATELET COUNT 218 K/uL (130-400); RED BLOOD COUNT 4.64 M/uL (4.2-5.4)
[2016-07-21 07:43] VITALS: BP 119/71; PULSE 59; TEMP 36.9; O2SAT 97
[2016-07-21 08:13] LABS: BUN/CREATININE RATIO 18.3 (10-20); CREATININE 1.1 mg/dl (0.60-1.20); MAGNESIUM 2.1 mg/dl (1.8-2.4); POTASSIUM 4.7 mmol/L (3.5-5.1)
[2016-07-21] MEDS: NSS + 20MEQ KCL 1000ML 1,000 ML IV SCH ×2 (09:15→16:29)
[2016-07-21] MEDS: SERTRALINE HCL 100 MG TAB PO SCH (09:17)
[2016-07-21] MEDS: LACTOBACILLUS ACIDOPHILUS (FLORANEX) TAB PO SCH ×3 (09:17→16:30)
[2016-07-21] MEDS: VANCOMYCIN HCL 150 MG/3 ML SOLN PO SCH ×4 (09:19→20:31)
[2016-07-21] MEDS: RASPBERRY SYRUP 5 ML UDP PO SCH ×4 (09:19→20:31)
[2016-07-21] MEDS: VANCOMYCIN INJ 750 MG in SODIUM CHLORIDE 0.9% 250ML 250 ML IV SCH (09:21)
[2016-07-21] MEDS: KETOROLAC TROMETHAMINE 30 MG/ML VIAL IV PRN (09:29)
[2016-07-21] MEDS: MoRPHine SULFATE 2 MG/ML CARP IV PRN (12:42)
--- NOTE | 2016-07-21 15:51 | Progress Note ---
Subjective Date of Service: Jul 21, 2016. Subjective Pt evaluation today including: conversation w/ patient, physical exam, chart review, lab review, review of studies, review of inpatient medication list States pain about the same in neck and chest wall No fevers or chills No acute events overnight Review of Systems Constitutional: No fever, No chills, No weight loss, No weakness Eyes: No worsening of vision, No eye pain, No redness Respiratory: No cough, No sputum, No wheezing, No shortness of breath, No dyspnea on exertion Cardiac: No chest pain, No orthopnea, No PND, No edema Abdomen: No pain, No nausea, No diarrhea Musculoskeletal: No joint pain, No muscle pain, No swelling, No calf pain Female : No dysuria, No urinary frequency, No hematuria, No incontinence Neurologic: No memory loss, No paralysis, No weakness, No numbness/tingling, No vertigo Psychiatric: No depression symptoms, No anhedonism, No anxiety, No insomnia Skin: No rash, No itch, No new/changing skin lesions, No color change Objective Vital Signs Date Time Temp Pulse Resp B/P (MAP) Pulse Ox O2 Delivery O2 Flow Rate FiO2 07/21/16 08:00 Room Air 07/21/16 07:43 36.9 59 18 119/71 (87) 97 Room Air 07/21/16 00:08 36.9 69 18 108/59 (75) 95 Room Air 07/20/16 23:59 Room Air 07/20/16 16:00 Room Air 07/20/16 16:00 84 18 118/74 (89) Room Air Physical Exam General Appearance: WD/WN, + mild distress Eyes: normal inspection, PERRL, EOMI, sclerae normal Neck: supple, no adenopathy, thyroid normal, no JVD Respiratory/Chest: chest non-tender, lungs clear, normal breath sounds, no respiratory distress Cardiovascular: regular rate, rhythm, no edema, no gallop, no JVD Abdomen: normal bowel sounds, non tender, soft, no organomegaly Extremities: normal range of motion, non-tender, normal inspection, no pedal edema Neurologic/Psychiatric: no motor/sensory deficits, alert, normal mood/affect, oriented x 3 Skin: normal color, warm/dry, no rash, + pertinent finding (redness on right side of neck and face resolving) Laboratory Results Last 24 Hours Test 07/21/16 07:30 White Blood Count 6.20 K/uL Red Blood Count 4.64 M/uL Hemoglobin 14.4 g/dL Hematocrit 44.2 % Mean Corpuscular Volume 95.3 fL Mean Corpuscular Hemoglobin 31.0 pg Mean Corpuscular Hemoglobin Concent 32.6 g/dl Platelet Count 218 K/uL Mean Platelet Volume 10.7 fL Neutrophils (%) (Auto) 49.4 % Lymphocytes (%) (Auto) 29.2 % Monocytes (%) (Auto) 12.7 % Eosinophils (%) (Auto) 7.9 % Basophils (%) (Auto) 0.6 % Neutrophils # (Auto) 3.06 K/uL Lymphocytes # (Auto) 1.81 K/uL Monocytes # (Auto) 0.79 K/uL Eosinophils # (Auto) 0.49 K/uL Basophils # (Auto) 0.04 K/uL RDW Standard Deviation 44.6 fL RDW Coefficient of Variation 12.8 % Immature Granulocyte % (Auto) 0.2 % Immature Granulocyte # (Auto) 0.01 K/uL Sodium Level 141 mmol/L Potassium Level 4.7 mmol/L Chloride Level 111 mmol/L Carbon Dioxide Level 24 mmol/L Anion Gap 6.0 mmol/L Blood Urea Nitrogen 20 mg/dl Creatinine 1.10 mg/dl Est Creatinine Clear Calc Drug Dose 44.3 ml/min Estimated GFR () 63.6 Estimated GFR (Non- 54.9 BUN/Creatinine Ratio 18.3 Random Glucose 91 mg/dl Calcium Level 9.0 mg/dl Magnesium Level 2.1 mg/dl Assessment and Plan 61 y/o presented to ED with redness, warmth and severe pain. Neck/chest wall cellulitis, improving Admited to medical floor No fevers or chills Redness improving and receeding from demarcated lines Cont IV antibx of rocephin day # 3, vanc dced Cont narcotics for pain control and aggressive IVF - the affected area has been demarcated. Advise on smoking cessation prior to DC Full code - Heparin prophylaxis following CT
[2016-07-21] MEDS: CEFTRIAXONE SOD INJ 1 GM in DEXTROSE 5% ADD-VANTAGE 50ML 50 ML IV SCH (16:29)
[2016-07-21 16:33] VITALS: BP 136/61; PULSE 57; TEMP 36.7; O2SAT 96
[2016-07-22 00:11] VITALS: BP 170/91; PULSE 59; TEMP 36.8; O2SAT 98
[2016-07-22] MEDS: ONDANSETRON INJ 2 MG/ML 2 ML VIAL IV PRN (01:10)
[2016-07-22] MEDS: MoRPHine SULFATE 4 MG/ML 1 ML CARP\\VIAL IV PRN (01:10)
[2016-07-22] MEDS: NSS + 20MEQ KCL 1000ML 1,000 ML IV SCH ×2 (01:16→12:15)
[2016-07-22] MEDS ORDERED: VANCOMYCIN TROUGH SCH (01:30)
[2016-07-22 07:38] LABS: BASO % 0.7 %; BASO ABS # 0.05 K/uL (0-0.2); COMPLETE YES; EOS % 12.1 %; HEMATOCRIT 39.5 % (37-47); IG% 0.1 %; LYMPH % 31.6 %; LYMPH ABS # 2.29 K/uL (1.2-3.4); MEAN CORPUSCULAR HEMOGLOBIN 31.4 pg (25-34); MEAN CORPUSCULAR HGB CONC 33.4 g/dl (32-36); MEAN PLATELET VOLUME 10.8 fL (7.4-10.4); MONO % 11.6 %; NEUT % 43.9 %; PLATELET COUNT 230 K/uL (130-400); WHITE BLOOD COUNT 7.25 K/uL (4.8-10.8)
[2016-07-22 07:41] VITALS: BP 136/64; PULSE 60; TEMP 36.7; O2SAT 94
[2016-07-22] MEDS: RASPBERRY SYRUP 5 ML UDP PO SCH ×3 (08:00→14:54)
[2016-07-22 08:12] LABS: BUN/CREATININE RATIO 17.4 (10-20); CREATININE 0.93 mg/dl (0.60-1.20); POTASSIUM 4.5 mmol/L (3.5-5.1)
[2016-07-22] MEDS ORDERED: OXYCODONE/ACETAMINOPHEN 7.5-325 TAB PO PRN (09:15)
[2016-07-22] MEDS: VANCOMYCIN HCL 150 MG/3 ML SOLN PO SCH (09:31)
[2016-07-22] MEDS: SERTRALINE HCL 100 MG TAB PO SCH (09:33)
[2016-07-22] MEDS: KETOROLAC TROMETHAMINE 30 MG/ML VIAL IV PRN (09:33)
[2016-07-22] MEDS: LACTOBACILLUS ACIDOPHILUS (FLORANEX) TAB PO SCH ×3 (09:34→16:50)
[2016-07-22] MEDS ORDERED: CEFD300C3 PO (12:19)
[2016-07-22] MEDS ORDERED: ULT50X PO (12:19)
[2016-07-22] MEDS ORDERED: OXYC7.5T62 PO (12:19)
--- NOTE | 2016-07-22 12:22 | Discharge Instructions ---
Discharge Instructions Date of Service Jul 22, 2016. Admission Reason for Admission: Cellulitis Of Chest Wall Discharge Discharge Diagnosis / Problem: Facial/neck cellulitis Discharge Goals Goal(s): Decrease discomfort, Improve function, Increase independence, Improve disease control, Learn about illness, Diagnostic testing, Prevent Disease Progression Activity Recommendations Activity Limitations: resume your previous activity Exercise/Sports Limitations: none Shower/Bathe: no limitations . Instructions / Follow-Up Instructions / Follow-Up Patient to be discharged home Please take antibiotic omnicef 300 mg tablet twice a day for 7 more days Please take ultram and perocet as needed for pain as directed If worsening redness, swelling, pain or fevers please report to ER Please follow up with Dr Padilla in 1-2 weeks Current Hospital Diet Patient's current hospital diet: Regular Diet Discharge Diet Recommended Diet: Regular Diet Pending Studies Studies pending at discharge: no Medical Emergencies . Who to Call and When: Medical Emergencies: If at any time you feel your situation is an emergency, please call 911 immediately. . Non-Emergent Contact Non-Emergency issues call your: Primary Care Provider Call Non-Emergent contact if: you have a fever, your pain is worsening . . "Provider Documentation" section prepared by Mohan Hilario. . VTE Core Measure Inpt VTE Proph given/why not?: Unfractionated heparin SQ
[2016-07-22] MEDS ORDERED: CEFDINIR 300 MG CAP PO ONE (13:00)
[2016-07-22 14:48] VITALS: BP 136/64; PULSE 60; TEMP 36.7; O2SAT 94
--- NOTE | 2016-07-22 15:15 | Discharge Summary ---
Discharge Summary Date of Service Jul 22, 2016. Discharge Summary Admission Date: Jul 19, 2016 at 22:47 Discharge Date: Jul 22, 2016 Discharge Disposition: Home Principal Diagnosis: Facial/neck cellulitis Medication Reconciliation New Medications: Cefdinir (Cefdinir) 300 Mg Cap 300 MG PO Q12 for 7 Days, #14 CAP Oxycodone/Acetaminophen 7.5MG/325MG (Endocet 7.5MG/325MG) 1 Tab Tab 1 TAB PO Q4H PRN for Pain, #30 TAB Tramadol HCl (Tramadol HCl) 50 Mg Tab 50 MG PO Q4H PRN for Pain, #30 TAB Continued Medications: Albuterol Sulfate (Proventil Hfa) 108 Mcg/Act Aer 2 PUFFS INH UD PRN for Cough Sertraline Hcl (Zoloft) 100 Mg Tab 100 MG PO DAILY, TAB Discharge Exam Review of Systems: Constitutional: No fever, No chills, No sweats, No weakness, No fatigue Eyes: No worsening of vision, No eye pain, No redness, No discharge ENT: No hearing loss, No unusual epistaxis, No nasal symptoms, No sore throat Respiratory: No cough, No sputum, No wheezing, No shortness of breath Cardiovascular: No chest pain, No orthopnea, No PND, No edema Abdomen: No pain, No nausea, No vomiting, No diarrhea Musculoskeletal: + muscle pain, No joint pain, No swelling, No calf pain Genitourinary - Female: No dysuria, No urinary frequency, No urinary urgency , No urinary incontinence, No urinary retention Neurologic: No memory loss, No paralysis, No weakness, No numbness/tingling Psychiatric: No depression symptoms, No anhedonism, No anxiety Integumentary: + new/changing skin lesions (redness on face/neck improving) , No rash, No itch Hospital Course 61 y/o presented to ED with redness, warmth and severe pain. Neck/chest wall cellulitis, improved with IV antibx Admitted to medical floor No fevers or chills Blood cx x 2 neg Redness improving and receeding from demarcated lines Cont IV antibx of rocephin and vanc day # 4 Discharged home with omnicef 300 mg PO BID and percocet 7.5 mg PO q 4 PRN pain Cont narcotics for pain control and aggressive IVF - the affected area has been demarcated. Advise on smoking cessation prior to DC Full code - Heparin prophylaxis following CT Total Time Spent: Greater than 30 minutes This includes examination of the patient, discharge planning, medication reconciliation, and communication with other providers. Discharge Instructions Please refer to the electronic Patient Visit Report (Discharge Instructions) for additional information. Additional Copies To Julius Padilla Jr, D.O.
[2016-07-22 15:49] VITALS: BP 128/82; PULSE 65; TEMP 36.6; O2SAT 95
[2016-07-22] MEDS: TRAMADOL HCL 50 MG TAB PO PRN (16:49)
[2016-07-22] MEDS ORDERED: CEFDINIR 300 MG CAP PO SCH (21:00)
[2016-07-25 17:13] LABS: 18KDIGG BAND REACTIVE (NONREACTIVE); 23KDIGG BAND NONREACTIVE (NONREACTIVE); 23KDIGM BAND REACTIVE (NONREACTIVE); 28KDIGG BAND NONREACTIVE (NONREACTIVE); 30KDIGG BAND NONREACTIVE (NONREACTIVE); 39KDIGG BAND NONREACTIVE (NONREACTIVE); 39KDIGM BAND NONREACTIVE (NONREACTIVE); 41KDIGG BAND REACTIVE (NONREACTIVE); 41KDIGM BAND REACTIVE (NONREACTIVE); 45KDIGG BAND NONREACTIVE (NONREACTIVE); 58KDIGG BAND NONREACTIVE (NONREACTIVE); 66KDIGG BAND NONREACTIVE (NONREACTIVE); 93KDIGG BAND NONREACTIVE (NONREACTIVE)
== END 2016-07-22 17:38 | disposition home or self-care (01) | DRG 603 ==
LOC: C.EDB 15:17 → C.MS4W 22:47 → ENRESERV 23:27
PROVIDERS: ADMIT Hospitalist; ATTEND Hospitalist
DX: L03.313 Cellulitis of chest wall (principal); L03.211 Cellulitis of face; L03.221 Cellulitis of neck; F17.210 Nicotine dependence, cigarettes, uncomplicated; Z79.899 Other long term (current) drug therapy

== ENCOUNTER 2017-01-11 09:48 | Emergency (ER) | payer OTHER ==
[~2017-01-11] VITALS: Ht 170.2 cm; Wt 58.9 kg
[~2017-01-11 09:48] MED LIST: ALBUAER INH; CEFD300C3 PO; OXYC7.5T62 PO; SERT100T PO; ULT50X PO
[2017-01-11 09:52] VITALS: TEMP 36.8; Ht 170.2 cm; Wt 58.9 kg
[2017-01-11] MEDS ORDERED: PREG1CAP70 PO (10:35)
[2017-01-11] MEDS ORDERED: OXYC15TA89 PO (10:35)
[2017-01-11] MEDS ORDERED: MoRPHine SULFATE 4 MG/ML 1 ML CARP\\VIAL IV STA ×2 (11:03→12:33)
[2017-01-11] MEDS ORDERED: ONDANSETRON INJ 2 MG/ML 2 ML VIAL IV STA (11:03)
[2017-01-11 11:52] LABS: BASO % 0.2 %; BASO ABS # 0.03 K/uL (0-0.2); COMPLETE YES; EOS % 0.2 %; HEMATOCRIT 39.1 % (37-47); IG% 0.2 %; LYMPH % 10.2 %; LYMPH ABS # 1.35 K/uL (1.2-3.4); MEAN CELL VOLUME 96.8 fL (80-100); MEAN CORPUSCULAR HEMOGLOBIN 32.2 pg (25-34); MEAN CORPUSCULAR HGB CONC 33.2 g/dl (32-36); MEAN PLATELET VOLUME 11.2 fL (7.4-10.4); MONO % 5.4 %; NEUT % 83.8 %; PLATELET COUNT 170 K/uL (130-400); RED BLOOD COUNT 4.04 M/uL (4.2-5.4); WHITE BLOOD COUNT 13.18 K/uL (4.8-10.8)
[2017-01-11 12:11] LABS: BUN/CREATININE RATIO 21.5 (10-20); CALCIUM 8.9 mg/dl (8.5-10.1); CREATININE 0.84 mg/dl (0.60-1.20); POTASSIUM 3.9 mmol/L (3.5-5.1)
--- NOTE | 2017-01-11 12:25 | DIAGNOSTIC IMAGING REPORT ---
R SHOULDER MIN 2 VIEWS ROUTINE CLINICAL HISTORY: RIGHT SHOULDER PAIN pain COMPARISON: None. DISCUSSION: Nondisplaced fracture lateral aspect humeral head. This includes the greater tuberosity. No evidence of dislocation. All remaining osseous structures are unremarkable. There is no evidence for soft tissue swelling. IMPRESSION: Comminuted fracture lateral aspect humeral head. This is nondisplaced. The above report was generated using voice recognition software. It may contain grammatical, syntax or spelling errors. Electronically signed by: Terry Meza M.D. 01/11/2017 12:24 PM Dictated Date/Time: 01/11/2017 12:23 PM
--- NOTE | 2017-01-11 12:30 | DIAGNOSTIC IMAGING REPORT ---
CHEST 2 VIEWS ROUTINE CLINICAL HISTORY: fall eval fro ptx COMPARISON STUDY: No previous studies for comparison. FINDINGS: The bones soft tissues and hemidiaphragms are normal. The cardiomediastinal silhouette is normal. The lungs are clear. The pulmonary vasculature is normal. IMPRESSION: Negative chest. The above report was generated using voice recognition software. It may contain grammatical, syntax or spelling errors. Electronically signed by: Terry Meza M.D. 01/11/2017 12:28 PM Dictated Date/Time: 01/11/2017 12:24 PM
--- NOTE | 2017-01-11 12:32 | DIAGNOSTIC IMAGING REPORT ---
R WRIST MIN 3 VIEWS ROUTINE HISTORY: 61 years-old Female RIGHT WRIST DEFORMITY acute right wrist pain status post trauma COMPARISON: None available TECHNIQUE: 3 views of the right wrist. FINDINGS: There is an acute comminuted impacted fracture of the distal radial metaphysis with fracture extension into both the radiocarpal and distal radioulnar joint. 10 mm dorsal displacement without significant angulation. Chondrocalcinosis and/or bone fragments are seen within the region of the TFCC. Distal ulna appears intact. Moderate soft tissue swelling. IMPRESSION: Acute comminuted impacted and mildly displaced intra-articular distal radial fracture. The above report was generated using voice recognition software. It may contain grammatical, syntax or spelling errors. Electronically signed by: Shaheen Moses M.D. 01/11/2017 12:30 PM Dictated Date/Time: 01/11/2017 12:29 PM
--- NOTE | 2017-01-11 12:39 | DIAGNOSTIC IMAGING REPORT ---
C-SPINE ROUTINE 4 OR 5 VIEWS HISTORY: Trauma eval for fx COMPARISON: None. FINDINGS: The cervical spine is visualized from C1 through the superior endplate of T1. There is no fracture. No subluxation. Considerable degenerative disc changes throughout. This is most significant from C5 through C7. Straightening of cervical curvature presumably due to vascular spasm. Prevertebral soft tissues are unremarkable. The C1-C2 complex is intact. IMPRESSION: Degenerative change. Muscle spasm. No acute bony abnormality. The above report was generated using voice recognition software. It may contain grammatical, syntax or spelling errors. Electronically signed by: Terry Meza M.D. 01/11/2017 12:37 PM Dictated Date/Time: 01/11/2017 12:37 PM
[2017-01-11] MEDS ORDERED: MoRPHine SULFATE 2 MG/ML CARP IV STA (13:29)
[2017-01-11 14:54] VITALS: BP 135/75; PULSE 65; O2SAT 94
--- NOTE | 2017-01-11 15:43 | EMERGENCY ROOM VISIT NOTE ---
History Report prepared by Gloria: Francisco Anderson Under the Supervision of: Dr. Stoney Haynes M.D. First contact with patient: 10:57 Chief Complaint: ARM PAIN Stated Complaint: PAIN,SWELLING IN R ARM/WRIST FROM FALL History of Present Illness The patient is a 61 year old female who presents to the Emergency Room with complaints of constant right arm pain beginning after a fall occurring 11 hours ago. She states that she slipped on a piece of paper at the top of her stairs, and ended up falling down the majority of her stairs. She states that she landed on her outstretched left arm. The patient states that she went to sleep following this, and came into the ED today upon waking up. She also complains of right neck, and shoulder pain. She states that her right chest and right leg hurts a little a well. The patient feels that she likely broke her wrist. She is unsure if she hit her head. She did not lose consciousness. The patient has a history of fibromyalgia for which she is on Lyrica. She is not on any blood thinners. She denies any abdominal pain, headaches, or hematuria. Source of History: patient Onset: 11 hours ago Position: arm (right) Timing: constant Associated Symptoms: + neck pain (right), + chest pain (right), No headache , No abdominal pain, No urinary symptoms (hematuria) Note: Additional symptoms: right leg and right shoulder pain. Review of Systems See HPI for pertinent positives & negatives. A total of 10 systems reviewed and were otherwise negative. Past Medical & Surgical Medical Problems: (1) Cellulitis of chest wall Family History No pertinent family history stated. Social History Smoking Status: Current Every Day Smoker Housing Status: lives with family Current/Historical Medications Scheduled Pregabalin (Lyrica), 150 MG PO TID Sertraline Hcl (Zoloft), 100 MG PO DAILY Scheduled PRN Oxycodone Hcl (Oxycontin), 15 MG PO TID PRN for Pain Allergies Coded Allergies: Penicillins (Unverified Allergy, Severe, ANAPHYLAXIS, 01/11/17) has tolerated ceftrixone and cefoxitin during past admissions Clarithromycin (Unverified Adverse Reaction, Unknown, GI UPSET, 01/11/17) Sulfamethoxazole w/Trimethoprim (Unverified Adverse Reaction, Unknown, GI UPSET, 01/11/17) Uncoded Allergies: SUTURE PROLENE VICRYL ? (Allergy, Unknown, 03/20/02) Physical Exam Vital Signs Date Time Temp Pulse Resp B/P (MAP) Pulse Ox O2 Delivery O2 Flow Rate FiO2 01/11/17 14:54 65 16 135/75 94 01/11/17 12:22 74 16 120/55 95 01/11/17 09:52 36.8 93 17 130/82 97 Room Air Physical Exam Constitutional: Vital signs reviewed. Eyes: Pupils are equal round reactive to light. Conjunctiva are noninjected. ENT: Pharynx is clear without erythema or exudate. Mucous membranes are moist. Neck supple without meningeal signs. Respiratory: Clear to auscultation bilaterally. Breath sounds are equal bilaterally. Cardiovascular: Regular rate and rhythm. No rubs or gallops. GI: Soft, nondistended and nontender. Bowel sounds are present. Musculoskeletal: No midline tenderness to the cervical spine. Mild tenderness to the right anterior shoulder. No tenderness to the humerus or elbow. Tenderness and deformity to the right wrist. Normal distal pulse. No hip tenderness. Integumentary: No cyanosis. Neurological: The patient is awake and alert. No focal deficits. Psychiatric: Normal affect. Medical Decision & Procedures ER Provider Diagnostic Interpretation: Radiology results as stated below per my review and the radiologist's interpretation: CHEST 2 VIEWS ROUTINE FINDINGS: The bones soft tissues and hemidiaphragms are normal. The cardiomediastinal silhouette is normal. The lungs are clear. The pulmonary vasculature is normal. IMPRESSION: Negative chest. The above report was generated using voice recognition software. It may contain grammatical, syntax or spelling errors. Electronically signed by: Terry Meza M.D. 01/11/2017 12:28 PM C-SPINE ROUTINE 4 OR 5 VIEWS FINDINGS: The cervical spine is visualized from C1 through the superior endplate of T1. There is no fracture. No subluxation. Considerable degenerative disc changes throughout. This is most significant from C5 through C7. Straightening of cervical curvature presumably due to vascular spasm. Prevertebral soft tissues are unremarkable. The C1-C2 complex is intact. IMPRESSION: Degenerative change. Muscle spasm. No acute bony abnormality The above report was generated using voice recognition software. It may contain grammatical, syntax or spelling errors. Electronically signed by: Terry Meza M.D. 01/11/2017 12:37 PM R WRIST MIN 3 VIEWS ROUTINE FINDINGS: There is an acute comminuted impacted fracture of the distal radial metaphysis with fracture extension into both the radiocarpal and distal radioulnar joint. 10 mm dorsal displacement without significant angulation. Chondrocalcinosis and/or bone fragments are seen within the region of the TFCC. Distal ulna appears intact. Moderate soft tissue swelling. IMPRESSION: Acute comminuted impacted and mildly displaced intra-articular distal radial fracture. The above report was generated using voice recognition software. It may contain grammatical, syntax or spelling errors. Electronically signed by: Shaheen Moses M.D. 01/11/2017 12:30 PM R SHOULDER MIN 2 VIEWS ROUTINE DISCUSSION: Nondisplaced fracture lateral aspect humeral head. This includes the greater tuberosity. No evidence of dislocation. All remaining osseous structures are unremarkable. There is no evidence for soft tissue swelling. IMPRESSION: Comminuted fracture lateral aspect humeral head. This is nondisplaced. The above report was generated using voice recognition software. It may contain grammatical, syntax or spelling errors. Electronically signed by: Terry Meza M.D. 01/11/2017 12:24 PM Laboratory Results 01/11/17 11:20 Red Blood Count 4.04, Mean Corpuscular Volume 96.8, Mean Corpuscular Hemoglobin 32.2, Mean Corpuscular Hemoglobin Concent 33.2, Mean Platelet Volume 11.2, Neutrophils (%) (Auto) 83.8, Lymphocytes (%) (Auto) 10.2, Monocytes (%) (Auto) 5.4, Eosinophils (%) (Auto) 0.2, Basophils (%) (Auto) 0.2, Neutrophils # (Auto) 11.05, Lymphocytes # (Auto) 1.35, Monocytes # (Auto) 0.71, Eosinophils # (Auto) 0.02, Basophils # (Auto) 0.03 01/11/17 11:20 Test 01/11/17 11:20 White Blood Count 13.18 K/uL (4.8-10.8) Red Blood Count 4.04 M/uL (4.2-5.4) Hemoglobin 13.0 g/dL (12.0-16.0) Hematocrit 39.1 % (37-47) Mean Corpuscular Volume 96.8 fL (80-100) Mean Corpuscular Hemoglobin 32.2 pg (25-34) Mean Corpuscular Hemoglobin Concent 33.2 g/dl (32-36) Platelet Count 170 K/uL (130-400) Mean Platelet Volume 11.2 fL (7.4-10.4) Neutrophils (%) (Auto) 83.8 % Lymphocytes (%) (Auto) 10.2 % Monocytes (%) (Auto) 5.4 % Eosinophils (%) (Auto) 0.2 % Basophils (%) (Auto) 0.2 % Neutrophils # (Auto) 11.05 K/uL (1.4-6.5) Lymphocytes # (Auto) 1.35 K/uL (1.2-3.4) Monocytes # (Auto) 0.71 K/uL (0.11-0.59) Eosinophils # (Auto) 0.02 K/uL (0-0.5) Basophils # (Auto) 0.03 K/uL (0-0.2) RDW Standard Deviation 49.0 fL (36.4-46.3) RDW Coefficient of Variation 13.8 % (11.5-14.5) Immature Granulocyte % (Auto) 0.2 % Immature Granulocyte # (Auto) 0.02 K/uL (0.00-0.02) Anion Gap 6.0 mmol/L (3-11) Est Creatinine Clear Calc Drug Dose 67.1 ml/min Estimated GFR () 88.2 Estimated GFR (Non- 76.1 BUN/Creatinine Ratio 21.5 (10-20) Calcium Level 8.9 mg/dl (8.5-10.1) Laboratory results as reviewed by me. Medications Administered Medications (Trade) Dose Ordered Sig/Jose Angel Route Start Time Stop Time Status Last Admin Dose Admin Morphine Sulfate (MoRPHine SULFATE INJ) 4 mg NOW STAT IV 01/11/17 11:03 01/11/17 11:06 DC 01/11/17 11:25 4 MG Ondansetron HCl (Zofran Inj) 4 mg NOW STAT IV 01/11/17 11:03 01/11/17 11:06 DC 01/11/17 11:24 4 MG Morphine Sulfate (MoRPHine SULFATE INJ) 4 mg NOW STAT IV 01/11/17 12:33 01/11/17 12:34 DC 01/11/17 12:38 4 MG Morphine Sulfate (MoRPHine SULFATE INJ) 2 mg NOW STAT IV 01/11/17 13:29 01/11/17 13:30 DC 01/11/17 13:36 2 MG ED Course 1059: The patient was evaluated in room A3. A complete history and physical exam was performed. 1103: Ordered Zofran Inj 4 mg IV, Morphine Sulfate 4 mg IV. 1230: I updated the patient on her imaging results. She is requesting more pain mediation. 1233: Ordered Morphine Sulfate 4 mg IV. 1326: Upon reevaluation, the patient is resting comfortably. She requested more pain medication. I discussed tonight's findings with her. She verbalized agreement of the treatment plan. She was discharged to Dr. Lynn's office. 1329: Ordered Morphine Sulfate 2 mg IV. Medical Decision This is a 61-year-old female presents with injuries after a fall. Differential diagnosis includes shoulder dislocation, humeral fracture, wrist fracture, contusion, sprain, cervical strain. I did perform a limited focused review of portions of the patient's old chart on the electronic medical record. The patient has had no recent pertinent visits to this hospital. I did evaluate the patient as noted above. The patient is presenting with right arm pain after fall. She denies any headache or head injury. She does complain of neck pain but states that she normally has neck pain. She has no midline tenderness to the cervical spine. She is grossly neurologically intact but unable to cooperate with testing of the right hand and arm. IV access was established.I did order and personally review the patient's x-rays as described above. I did order and review the patient's blood work as noted in the electronic medical record. I did discuss the test results with her. She was treated with IV morphine times several doses for her pain as well as IV Zofran. She stated that she had seen Dr. Lynn in the past and would like to continue to see him. I did call his office and spoke to the PA. He did state that they reviewed the films in the office and requested that she be placed in a sling and splint and sent directly to the office. The patient was placed in a volar wrist splint and a sling. She was discharged and advised to go directly to the orthopedic office. Medication Reconcilliation Current Medication List: was personally reviewed by me Blood Pressure Screening Patient's blood pressure: Elevated blood pressure Blood pressure disposition: Referred to PCP Consults Time Called: 1245 Consulting Physician: Dr. Head -Orthopedics Returned Call: [address] Head of Orthopedics. He recommend consultation with [facility]. Additional Consults: Time Called: 1255 Consulted Physician: Jason Crews PA-C Orthopedics Returned Call: [phone] Additional Comments: I spoke with Jason Crews PA-C of [facility]. He recommends the patient be splinted, and sent directly to their office. Impression Primary Impression: Right humeral fracture Additional Impressions: Fracture of right distal radius Fall Scribe Attestation The scribe's documentation has been prepared under my direct and personally reviewed by me in its entirety. I confirm that the note above accurately reflects all work, treatment, procedures, and medical decision making performed by me. Departure Information Dispostion Home / Self-Care Referrals Julius Padilla Jr,D.O. (PCP) Forms HOME CARE DOCUMENTATION FORM, IMPORTANT VISIT INFORMATION Patient Instructions ED Fx Upper Ext, ED Fx Wrist General, [facility] Additional Instructions Go directly to Dr. Lynn's office. Problem Qualifiers Primary Impression: Right humeral fracture Encounter type: initial encounter Humerus Location: proximal Fracture type : closed Fracture morphology: unspecified fracture morphology Qualified Codes: S42.201A - Unspecified fracture of upper end of right humerus, initial encounter for closed fracture Additional Impressions: Fracture of right distal radius Encounter type: initial encounter Fracture type: closed Fracture morphology : unspecified fracture morphology Qualified Codes: S52.501A - Unspecified fracture of the lower end of right radius, initial encounter for closed fracture Fall Encounter type: initial encounter Qualified Codes: W19.XXXA - Unspecified fall, initial encounter
== END 2017-01-11 14:55 | disposition home or self-care (01) ==
LOC: C.EDB 09:50 → C.EDA 14:55
DX: S42.294A Other nondisplaced fracture of upper end of right humerus, initial encounter for closed fracture (principal); S52.571A Other intraarticular fracture of lower end of right radius, initial encounter for closed fracture; W10.9XXA Fall (on) (from) unspecified stairs and steps, initial encounter; Y92.009 Unspecified place in unspecified non-institutional (private) residence as the place of occurrence of the external cause; M54.2 Cervicalgia; M79.604 Pain in right leg; R07.9 Chest pain, unspecified; M79.7 Fibromyalgia; F17.200 Nicotine dependence, unspecified, uncomplicated

== ENCOUNTER → 2017-03-09 | Outpatient (CLI) | payer OTHER ==
[~2017-03-09] MED LIST changes: -ALBUAER INH; -CEFD300C3 PO; +OXYC15TA89 PO; -OXYC7.5T62 PO; +PREG1CAP70 PO; -ULT50X PO
[2017-03-09 13:55] LABS: BASO % 0.6 %; BASO ABS # 0.07 K/uL (0-0.2); EOS % 5.1 %; EOS ABS # 0.56 K/uL (0-0.5); HEMATOCRIT 46.3 % (37-47); IG# 0.02 K/uL (0.00-0.02); MEAN CELL VOLUME 95.5 fL (80-100); MEAN CORPUSCULAR HGB CONC 34.6 g/dl (32-36); MONO % 5.5 %; NEUT % 66.6 %; NEUT ABS # 7.24 K/uL (1.4-6.5); PLATELET COUNT 296 K/uL (130-400); RED CELL DISTRIBUTION WIDTH CV 12.8 % (11.5-14.5); RED CELL DISTRIBUTION WIDTH SD 44.6 fL (36.4-46.3); WHITE BLOOD COUNT 10.89 K/uL (4.8-10.8)
[2017-03-09 14:25] LABS: ALBUMIN 3.9 gm/dl (3.4-5.0); ALKALINE PHOSPHATASE 96 U/L (45-117); AST/SGOT 19 U/L (15-37); BLOOD UREA NITROGEN 13 mg/dl (7-18); CALCIUM 9.5 mg/dl (8.5-10.1); CARBON DIOXIDE 28 mmol/L (21-32); CREATININE 0.72 mg/dl (0.60-1.20); GLUCOSE 99 mg/dl (70-99); POTASSIUM 4.2 mmol/L (3.5-5.1); SODIUM 140 mmol/L (136-145)
[2017-03-09 14:31] LABS: ALT/SGPT 28 U/L (12-78); TOTAL PROTEIN 8.2 gm/dl (6.4-8.2); TRANSFERRIN 290 mg/dl (200-360)
[2017-03-12 15:22] LABS: ANA SCREEN TC 249X NEGATIVE (NEGATIVE); ANTI-SS-A <1.0 NEG AI (<1.0 NEG); ANTI-SS-B <1.0 NEG AI (<1.0 NEG)
== END | disposition home or self-care (01) ==
LOC: C.LABBC 10:42
DX: M19.90 Unspecified osteoarthritis, unspecified site (principal); R53.83 Other fatigue